=== PATIENT | male | born 1980 | race Caucasian/White ===

== ENCOUNTER 2018-03-26 14:56 | Emergency (ER) | payer OTHER ==
[~2018-03-26] VITALS: Ht 177.8 cm; Wt 98.9 kg
[2018-03-26 15:25] VITALS: Ht 177.8 cm; Wt 98.9 kg
[2018-03-26 17:19] VITALS: BP 154/89
== END 2018-03-26 17:19 | disposition home or self-care (01) ==
LOC: ED 14:56
DX: J03.90 Acute tonsillitis, unspecified (principal)
CPT/HCPCS: J1100; J1885

== ENCOUNTER 2018-11-03 12:16 | Emergency (ER) | payer OTHER ==
[~2018-11-03] VITALS: Ht 175.3 cm; Wt 102.1 kg
[2018-11-03 12:29] VITALS: Ht 175.3 cm; Wt 102.1 kg
[2018-11-03 14:28] VITALS: BP 151/116
== END 2018-11-03 14:08 | disposition home or self-care (01) ==
LOC: ED 12:16
DX: J02.8 Acute pharyngitis due to other specified organisms (principal); I10 Essential (primary) hypertension
CPT/HCPCS: J1100; Q0092

== ENCOUNTER 2020-07-28 08:28 | Emergency (ER) | payer OTHER ==
[~2020-07-28] VITALS: Ht 175.3 cm; Wt 101.2 kg
[2020-07-28 08:53] VITALS: Ht 175.3 cm; Wt 101.2 kg
[2020-07-28 11:10] VITALS: BP 170/115
== END 2020-07-28 11:10 | disposition home or self-care (01) ==
LOC: ED 08:28
DX: M25.512 Pain in left shoulder (principal); M10.9 Gout, unspecified; R03.0 Elevated blood-pressure reading, without diagnosis of hypertension; Z90.89 Acquired absence of other organs
CPT/HCPCS: J1885; Q0092